=== PATIENT | female | born 1950 | race Caucasian/White ===

== ENCOUNTER 2022-09-12 17:28 | Emergency (ER) | payer OTHER ==
[~2022-09-12] VITALS: Ht 165.1 cm; Wt 59.0 kg
[2022-09-12 17:31] VITALS: BP_SYST 143
[2022-09-12] MEDS ORDERED: KETOROLAC TROMETHAMINE 30 MG VIAL IM ONE (20:45)
[2022-09-12 22:30] VITALS: BP_SYST 140
--- NOTE | 2022-09-12 22:30 | NUR ---
Patient to ER bed 04 to gown for evaluation. Side rails up. Report given to Cristela BROCK.
[2022-09-12] MEDS ORDERED: TRAM50TA PO (23:00)
[2022-09-12] MEDS ORDERED: traMADol HCL HCL 50 MG TABLET (ULTRAM) ONE (23:12)
[2022-09-12] MEDS ORDERED: traMADol HCL HCL 50 MG TABLET (ULTRAM) PO ONE (23:15)
== END 2022-09-12 23:09 | disposition home or self-care (01) ==
LOC: SED 17:28 → EDBD 17:28 → SED 23:09
DX: S52.125A Nondisplaced fracture of head of left radius, initial encounter for closed fracture (principal); S02.5XXA Fracture of tooth (traumatic), initial encounter for closed fracture; S52.501A Unspecified fracture of the lower end of right radius, initial encounter for closed fracture; Z79.899 Other long term (current) drug therapy; Y30.XXXA Falling, jumping or pushed from a high place, undetermined intent, initial encounter; Y93.89 Activity, other specified; Y92.89 Other specified places as the place of occurrence of the external cause; Y99.8 Other external cause status
CPT/HCPCS: 99284; 70450; 29105; 73080; 73110; 70486; 76376; 96372; J1885